=== PATIENT | female | born 1945 | race Caucasian/White ===

== ENCOUNTER 2016-12-08 00:57 | Inpatient (IN) | payer OTHER, MEDICARE ==
[2016-12-05 04:00] VITALS: BP 127/79; PULSE 84; RESP 18; TEMP 95.7; O2SAT 96
[~2016-12-08] VITALS: Ht 170.2 cm; Wt 76.5 kg
[~2016-12-08 00:57] MED LIST: ACYC200C66 PO; ATOR20TA15 PO; METO25TA3 PO; NALOXONE HCL 0.4 MG/ML AMP IV PRN; OMEP20TA PO; SODIUM CHLORIDE 0.9% FLUSH 10 ML FLUSH IV FLUSH PRN; VORI200 PO
[2016-12-08 01:10] VITALS: BP 160/101; PULSE 104; RESP 16; TEMP 96.5; O2SAT 96
[2016-12-08 08:00] VITALS: BP 145/84; PULSE 110; PULSE 98; RESP 20; TEMP 97; O2SAT 98
--- NOTE | 2016-12-08 09:46 | HHI.HP ---
[facility] Service [facility] Primary Care Physician Non-Staff Admission Diagnosis Dyspnea; lung mass Diagnoses: (1) Lung mass (2) Elevated troponin (3) Dyspnea on exertion Chief Complaint: Dyspnea Travel History International Travel<30 Days: No Contact w/Intl Traveler <30 Da: No History of Present Illness The patient is a 70-year-old female who presented to the emergency department with complaint of worsening shortness of breath over the past 2 days. She denies chest pain. States that the shortness of breath is significantly worse with any exertion. She was not able to walk around her van without getting short of breath yesterday. She states that she was at work and decided to drive herself to the ER because she was so short of breath. 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 She denies cardiac history, although does have family history of heart disease. Her mother had myocardial infarction at age 64. She states that she is feeling a little better this morning, but has not really been up ambulating much. Review of Systems Constitutional: DENIES: Fever, Chills, Night Sweats Eyes: DENIES: Blurred vision, Vision loss Ears, nose, mouth, throat: DENIES: Hearing loss Respiratory: COMPLAINS OF: Shortness of breath, DENIES: Cough, Wheezing, Sputum production Cardiovascular: COMPLAINS OF: Dyspnea on Exertion, DENIES: Chest pain, Palpitations, Lower Extremity Edema Gastrointestinal: DENIES: Abdominal pain, Constipation, Diarrhea, Nausea, Vomiting Genitourinary: DENIES: Urinary frequency, Urinary incontinence, Urgency, Hematuria, Dysuria, Nocturia Musculoskeletal: DENIES: Joint pain, Muscle aches Integumentary: DENIES: Pruritus, Rash Hematologic/lymphatic: DENIES: Bruising Neurologic: DENIES: Headache Past Family Social History Past Medical History History of T-cell lymphoma History of fungal pneumonia Diabetes mellitus, diet controlled GERD Past Surgical History Labs, cholecystectomy Appendectomy Hysterectomy Reported Medications Acyclovir 200 Mg Cap 200 Mg PO 5 TIMES A DAY Vfend (Voriconazole) 200 Mg Tab 200 Mg PO Q12H Metoprolol Tartrate 25 Mg Tab 25 Mg PO BID Atorvastatin (Atorvastatin Calcium) 20 Mg Tab 20 Mg PO HS Omeprazole 20 Mg Tab 20 Mg PO DAILY Allergies: Coded Allergies: Sulfa (Verified Allergy, Unknown, itching, 04/24/15) Family History Mother at age 64 of myocardial infarction. Social History Quit smoking 24 years ago. Denies alcohol or illicit drug use. Physical Exam Vital Signs Vital Signs Date Time Temp Pulse Resp B/P Pulse Ox O2 Delivery O2 Flow Rate FiO2 12/08/16 08:00 97.0 98 20 145/84 98 12/08/16 01:10 96.5 104 16 160/101 96 Physical Exam GENERAL: Elderly female in no acute distress. HEENT: Normocephalic, atraumatic. Pupils equal, round and reactive. Extraocular movements intact. No scleral icterus. No injection or drainage. Oropharynx is clear. Mucous membranes are moist. CARDIOVASCULAR: Irregular rhythm. RESPIRATORY: Clear to auscultation. No wheezes, rales, or rhonchi. Decreased breath sounds in both bases. Breathing is non-labored. GASTROINTESTINAL: Abdomen soft, non-tender, nondistended. EXTREMITIES: No lower extremity edema. No calf tenderness. PSYCH: Alert and oriented x 3. Assessment and Plan Assessment and Plan 1. Dyspnea: Possibly multifactorial. Patient does have pleural effusions. She denies personal history of cardiac disease, but does have elevated troponin. No current chest pain. Continue supplemental oxygen as needed. Add bronchodilators. 2. Hyperlipidemia: Continue statin. 3. Lung mass: Concerning for malignancy. Patient has history of T-cell lymphoma. Pulmonology consultation has been requested. 4. Elevated troponin: Continue serial cardiac enzymes. Consult cardiology. Monitor on telemetry. 5. DVT prophylaxis: LONA Shrestha. Bola Harry MD Dec 08, 2016 09:46
[2016-12-08] MEDS: ACETAMINOPHEN 325 MG TAB PO PRN ×2 (11:00→21:03)
[2016-12-08] MEDS: SODIUM CHLORIDE 0.9% FLUSH 10 ML FLUSH IV FLUSH SCH ×2 (11:00→21:01)
[2016-12-08] MEDS: METOPROLOL TARTRATE 25 MG TAB PO SCH ×2 (11:00→21:00)
[2016-12-08] MEDS: ACYCLOVIR 200 MG CAP PO SCH ×2 (11:05→21:00)
[2016-12-08] MEDS: PANTOPRAZOLE SOD 20 MG DELAYED RELEASE TAB PO SCH ×2 (11:05→21:00)
[2016-12-08 12:00] VITALS: BP 144/76; PULSE 51; RESP 20; TEMP 97.2; O2SAT 96
--- NOTE | 2016-12-08 12:32 | EKG ---
Date Performed: 12/08/2016 Time Performed: 09:10:33 PTAGE: 71 years EKG: SINUS TACHYCARDIA WITH FREQUENT ECTOPIC PREMATURE COMPLEXES NONSPECIFIC T-WAVE ABNORMALITY ABNORMAL RHYTHM ECG NO SIGNIFICANT CHANGE FROM PRIOR ELECTROCARDIOGRAM. PREVIOUS TRACING : 04/22/2015 15.18 DOCTOR: Santiago Hyman Interpretating Date/Time 12/08/2016 12:30:27
[2016-12-08] MEDS: VORICONAZOLE 200 MG TAB PO SCH (13:26)
[2016-12-08 15:58] VITALS: BP 121/81; PULSE 95; RESP 20; TEMP 97.4; O2SAT 97
--- NOTE | 2016-12-08 18:34 | PD.CONS ---
HPI Consult Requested By Primary Care Physician Non-Staff History of Present Illness 70-year-old female with pmhx of T-cell lymphoma s/p chemo and transplant at [facility], fungal lung infection, HTN, HLD, DM and family hx of CAD who presented to the emergency department with complaint of worsening shortness of breath over the past 2 days. States that the shortness of breath is significantly worse with minimal exertion. She denies cardiac history, chest pains, palpitations or syncope. She has been found to have bilateral extremity edema, pleural effusions and a upper lung mass concerning for malignancy. Troponin trended up, EKG sinus tachycardia with nonspecific ST changes. Cardiology has been consulted for further management and evaluation. Review of Systems Consitutional: COMPLAINS OF: Fatigue Eyes: DENIES: Amaurosis Fugax, Change in vision HEENT: DENIES: Lightheadedness, Change in hearing Respiratory: COMPLAINS OF: Shortness of breath, DENIES: See HPI, Cough, Snoring, Wheezing, Sputum production Cardiovascular: DENIES: See HPI, Chest pain, Palpitations, Syncope, Tachycardia Gastrointestinal: DENIES: Nausea, Vomiting, Change in bowel habits, Reflux, Bloody stools, Melena Genitourinary: DENIES: Urinary incontinence, Difficulty voiding Integumentary: DENIES: Rash Neurologic: DENIES: Tingling or numbness, Memory problems, Poor Balance, Stroke symptoms Musculoskeletal: DENIES: Joint pain, Muscle pain, Limited range of motion, Back pain Psychiatric: DENIES: Anxiety, Depression, Sleep disturbances Hematologic: DENIES: Bruising tendencies, Bleeding tendencies Endocrine: COMPLAINS OF: Weight gain Past Family Social History Allergies: Coded Allergies: Sulfa (Verified Allergy, Unknown, itching, 04/24/15) Past Medical History T-cell lymphoma Fungal pneumonia Diabetes mellitus, diet controlled GERD Past Surgical History Cholecystectomy Appendectomy Hysterectomy Reported Medications Reported Meds & Active Scripts Active Reported Acyclovir 200 Mg Cap 200 Mg PO BID Vfend (Voriconazole) 200 Mg Tab 200 Mg PO Q12H Metoprolol Tartrate 25 Mg Tab 25 Mg PO BID Atorvastatin (Atorvastatin Calcium) 20 Mg Tab 40 Mg PO HS Omeprazole 20 Mg Tab 20 Mg PO BID Active Ordered Medications Current Medications Medications (Trade) Dose Ordered Sig/Gregorio Route Start Time Stop Time Status Last Admin (NS Flush) 2 ml UNSCH PRN IV FLUSH 12/08/16 00:45 (NS Flush) 2 ml BID IV FLUSH 12/08/16 09:00 12/08/16 11:00 (Narcan Inj) 0.4 mg UNSCH PRN IV 12/08/16 00:45 (Zovirax) 200 mg BID PO 12/08/16 11:00 12/08/16 11:05 (Lipitor) 40 mg HS PO 12/08/16 21:00 (Lopressor) 25 mg BID PO 12/08/16 11:00 12/08/16 11:00 (Vfend) 200 mg Q12H PO 12/08/16 13:00 12/08/16 13:26 (Protonix) 20 mg BID PO 12/08/16 11:00 12/08/16 11:05 (Tylenol) 650 mg Q6H PRN PO 12/08/16 10:00 12/08/16 11:00 Family History Mother myocardial infarction 64 Social History Quit smoking 24 years ago. Denies alcohol or illicit drug use. Physical Exam Vital Signs Vital Signs Date Time Temp Pulse Resp B/P Pulse Ox O2 Delivery O2 Flow Rate FiO2 12/08/16 15:58 97.4 95 20 121/81 97 12/08/16 12:00 97.2 51 20 144/76 96 12/08/16 08:00 110 12/08/16 08:00 97.0 98 20 145/84 98 12/08/16 01:10 96.5 104 16 160/101 96 Physical Exam GENERAL: Well-nourished, well-developed patient. SKIN: Warm and dry. HEAD: Normocephalic. EYES: No scleral icterus. No injection or drainage. NECK: Supple, trachea midline. + JVD or lymphadenopathy. CARDIOVASCULAR: Regular rate and rhythm, tachycardic, without murmurs, gallops, or rubs. RESPIRATORY: Breath sounds equal bilaterally. No accessory muscle use. Bilateral rales GASTROINTESTINAL: Abdomen soft, non-tender, nondistended. EXTREMITIES: No cyanosis, or edema. NEUROLOGICAL: Awake, alert, and oriented x 3. Non-focal. Laboratory Laboratory Tests Test 12/08/16 09:00 Total Creatine Kinase 46 Troponin I 0.17 Assessment and Plan Problem List: (1) Elevated troponin Assessment and Plan: 71 y/o F admitted with SOB, pleural effusion and edema concerning for new onset heart failure. She remains afebrile and hemodynamically stable. Troponin minimally elevated. No BNP or TSH ordered. DDx new onset HF ischemic vs nonischemic (?chemo related) vs mets and worsening or recurrence of malignancy. She seems more compensated from SOB now. She was seem by pulmonology who recommends therapeutic and diagnostic thoracentesis in AM. Regarding elevated troponin I would start with a 2DEcho to assess LV systolic function. If EF depressed we can assess the need for LHC however if PCI is needed the Lung Mass needs to be work up first. Recommendations: 1. Aspirin 81mg PO daily 2. BNP 3. TSH, Free T3 and T4 4. Gentle IV diuresis 5. Daily weight 6. Low salt diet 7. 2Decho 8. Cont home cardiac medications (Lopressor and Lipitor) (2) Dyspnea on exertion (3) Lung mass (4) Lymphoma Sergio Herbert MD Dec 08, 2016 18:34
[2016-12-08 20:00] VITALS: BP 141/88; PULSE 88; PULSE 95; RESP 16; TEMP 97; O2SAT 95
[2016-12-08] MEDS: ATORVASTATIN 40 MG TAB PO SCH (21:00)
[2016-12-09] VITALS (11 sets, daily range): BP systolic 119–145; BP diastolic 72–87; PULSE 51–112; RESP 16–19; TEMP 96.1–98.1; O2SAT 95–98
[2016-12-09] MEDS: VORICONAZOLE 200 MG TAB PO SCH ×2 (01:00→12:45)
[2016-12-09 06:30] LABS: AUTOMATED NEUTROPHIL # 4.1 TH/MM3 (1.8-7.7); BASOPHIL % 0.6 % (0.0-2.0); EOSINOPHIL # 0.2 TH/MM3 (0-0.4); EOSINOPHIL % 2.9 % (0.0-4.0); HEMATOCRIT 32.7 % (35.0-46.0); HEMO FLAGS DIFF FINAL; LYMPH % 15.5 % (9.0-44.0); LYMPHOCYTE # 0.9 TH/MM3 (1.0-4.8); MEAN CELL VOLUME 92.6 FL (80.0-100.0); MEAN CORPUSCULAR HEMOGLOBIN 30.5 PG (27.0-34.0); MEAN CORPUSCULAR HGB CONC 32.9 % (32.0-36.0); MONO % 6.7 % (0.0-8.0); NEUT % 74.3 % (16.0-70.0); PLATELET COUNT 149 TH/MM3 (150-450); RED BLOOD COUNT 3.53 MIL/MM3 (4.00-5.30); RED CELL DISTRIBUTION WIDTH 16.1 % (11.6-17.2); WHITE BLOOD COUNT 5.6 TH/MM3 (4.0-11.0)
[2016-12-09 06:36] LABS: BICARBONATE 27.3 MEQ/L (21.0-32.0)
--- NOTE | 2016-12-09 07:06 | MB ---
cc: YOEL DIALLO M.D. DATE OF CONSULTATION 12/08/2016 REASON FOR CONSULTATION Shortness of breath, pleural effusion. HISTORY OF PRESENT ILLNESS Mrs. Vyas is a 71-year-old female who presents to the emergency room with increasing shortness of breath progressively worse for several days prior to her presentation. The patient does have significant previous history. She has history of T-cell lymphoma for which she had had a bone marrow transplant and told she was in remission at this point. She does have a recent history of fungal pneumonia for which she had been evaluated and treated at the [facility]. The patient denies a history of fever, chills, cough, expectoration, or hemoptysis. No TB or industrial exposure. FAMILY HISTORY Positive for heart disease, otherwise unremarkable. ALLERGIES Sulfa drugs. MEDICATIONS Include: 1. Acyclovir 2. Voriconazole 3. Metoprolol 4. Atorvastatin 5. Omeprazole SOCIAL HISTORY She did smoke for over 30 years, however has not smoked for the last 24. Does not really drink any alcohol. Does not use drugs. REVIEW OF SYSTEMS A 12-point review of systems as per HPI and past history is otherwise negative. PHYSICAL EXAM On exam, temperature 97, pulse 90, respirations 20, blood pressure 140/80. HEENT: Exam unremarkable. Eyes without icterus. NECK: Without adenopathy, thyroid enlargement, central trachea. CHEST: Decreased breath sounds at both lung bases, more so on the right. CARDIAC: PMI distant. S1-S2 audible. 1/6 ejection systolic murmur left sternal border. ABDOMEN: Lax, bowel sounds audible. EXTREMITIES: No clubbing, cyanosis, 1+ edema. LABORATORY DATA White count 6.4, hemoglobin 11, hematocrit 34, platelets at 158,000, INR 1.00. Sodium 142, potassium 3.7, BUN 15, creatinine 0.8, serum albumin at 3.3. CT angiogram done on 12/07/1969 without evidence of pulmonary embolization. A 22 mm mass is noted in the right middle lobe, malignancy is suspect. Large right smaller left pleural effusions, mild to mediastinal lymph node enlargement, coronary artery calcification. IMPRESSION 1. Bilateral pleural effusion etiology unclear. 2. History of lymphoma. 3. Fungal pneumonia by history on therapy. 4. Right middle lobe lung mass needs further workup. PLAN At this point, the main concern is the patient's shortness of breath. She would require a thoracentesis to improve her breathing. Meanwhile, the fluid will be obtained for both diagnostic and therapeutic objective and this may shed some light as to the etiology of the effusion. The patient does not seem to be having an acute infection at this point. Underlying malignancy is obviously a possibility. A cardiac evaluation is pending at this time as well for possible congestive heart failure. We will check the pleural fluid study results and depending on findings proceed further. I do thank you for asking me to partake in Mrs. Vyas' care. Sincerely. Yoel Diallo MD WWW/MAXIMILIANO /6:41 PM /6:57 AM
--- NOTE | 2016-12-09 09:05 | RADHPO ---
EXAM DATE/TIME: 12/09/2016 08:47 [place] COMPARISON: CT PULMONARY ANGIOGRAM, December 07, 2016, 21:40. INDICATIONS : Right pleural effusion. MEDICAL HISTORY : Hypercholesterolemia. Hernia, hiatal. Arthritis. Cervical cancer. Spinal cancer. Chemotherapy. Blood transfusion. SURGICAL HISTORY : Cholecystectomy. Appendectomy. Hysterectomy. Bone marrow transplant. ENCOUNTER: Initial ACUITY: 3 days PAIN SCORE: 2/10 LOCATION: Right chest MEASUREMENTS: SKIN TO PARIETAL PLEURA: Inadequate fluid SKIN TO MAX SAFE DEPTH: Inadequate fluid ESTIMATED FLUID VOLUME: 176 cc FLUID COMPOSITION: simple FINDINGS: No marking was performed. <Evaluation of both hemithoraces was performed and correlated to the CTA. The effusions have decreased considerably from that prior study.> CONCLUSION: The effusions have decreased considerably from the prior CTA. There is insufficient volume for safe t horacentesis. Paco Vyas Jr., MD on December 09, 2016 at 9:01 Board Certified Radiologist. This report was verified electronically.
[2016-12-09 09:10] LABS: PROTHROMBIN TIME - PATIENT 10.8 SEC (9.8-11.6)
[2016-12-09] MEDS: ACYCLOVIR 200 MG CAP PO SCH ×2 (09:38→21:46)
[2016-12-09] MEDS: PANTOPRAZOLE SOD 20 MG DELAYED RELEASE TAB PO SCH ×2 (09:38→21:00)
[2016-12-09] MEDS: METOPROLOL TARTRATE 25 MG TAB PO SCH (09:38)
[2016-12-09] MEDS: SODIUM CHLORIDE 0.9% FLUSH 10 ML FLUSH IV FLUSH SCH ×2 (09:40→21:46)
--- NOTE | 2016-12-09 11:20 | HHI.PR ---
Subjective Remarks Follow-up dyspnea, pleural effusion, elevated troponin. Patient states that her breathing is better today. She still gets short of breath with ambulation. No chest pain. Objective Vitals Vital Signs Date Time Temp Pulse Resp B/P Pulse Ox O2 Delivery O2 Flow Rate FiO2 12/09/16 08:00 96.2 97 17 132/82 95 12/09/16 04:00 97.2 87 16 144/87 96 12/09/16 00:00 96.4 51 16 136/83 96 12/08/16 20:00 95 12/08/16 20:00 97.0 88 16 141/88 95 12/08/16 15:58 97.4 95 20 121/81 97 12/08/16 12:00 97.2 51 20 144/76 96 I/O 12/08/16 12/08/16 12/08/16 12/09/16 12/09/16 12/09/16 07:00 15:00 23:00 07:00 15:00 23:00 Intake Total 240 ml 840 ml 640 ml 480 ml Balance 240 ml 840 ml 640 ml 480 ml Intake Oral 240 ml 840 ml 640 ml 480 ml # Voids 2 2 3 1 # Bowel Movements 0 0 0 0 Result Diagram: 12/09/16 0505 12/09/16 0505 Imaging Last Impressions Chest Ultrasound 12/09/16 0000 Signed Impressions: Service Date/Time: November 08:47 - CONCLUSION: The effusions have decreased considerably from the prior CTA. There is insufficient volume for safe thoracentesis. Paco Vyas Jr., MD Objective Remarks General: Elderly female in no acute distress. Heart: Regular rate and rhythm. No murmur. Lungs: Decreased breath sounds in both bases. Breathing is nonlabored. Abdomen: Soft, nontender, nondistended. Extremities: No lower extremity edema. Psych: Alert and oriented. Procedures None Urinary Catheter: No Vascular Central Line Catheter: No A/P Problem List: (1) Lung mass ICD Code: R91.8 Status: Acute (2) Elevated troponin ICD Code: R74.8 Status: Acute (3) Dyspnea on exertion ICD Code: R06.09 Status: Acute Assessment and Plan 1. Dyspnea: Multifactorial. Improving. She denies personal history of cardiac disease, but does have elevated troponin. No current chest pain. Continue supplemental oxygen as needed. Continue bronchodilators. Appreciate pulmonology and cardiology recommendations. Pleural effusion improved and there is not enough fluid present for thoracentesis. 2. Hyperlipidemia: Continue statin. 3. Lung mass: Concerning for malignancy. Patient has history of T-cell lymphoma. Pulmonology consultation has been requested. 4. Elevated troponin: Trending down. Monitor on telemetry. Appreciate cardiology recommendations. Echocardiogram pending. 5. DVT prophylaxis: LONA Shrestha. Discharge Planning Possible discharge home tomorrow. Bola Harry MD Dec 09, 2016 11:20
--- NOTE | 2016-12-09 16:57 | ECHRPT ---
Indication: Cardiomyopathy, unspecified CONCLUSIONS Normal left ventricular size. Wall thickness is normal. The left ventricular systolic function is severely reduced with an estimated ejection fraction in th e range of 20-25%. Mild mitral valve regurgitation. There is mild tricuspid valve regurgitation. There is estimated cvzgmcvb-mi-bxywmn pulmonary hypertension present (range 60-70 mmHg). IVC 2.8 BP: / HR: 93 Rhythm: MEASUREMENTS (Male / Female) Normal Values Technical Quality:Good 2D ECHO LV Diastolic Diameter PLAX 4.4 cm 4.2 - 5.9 / 3.9 - 5.3 cm LV Systolic Diameter PLAX 4.0 cm IVS Diastolic Thickness 1.2 cm 0.6 - 1.0 / 0.6 - 0.9 cm LVPW Diastolic Thickness 0.9 cm 0.6 - 1.0 / 0.6 - 0.9 cm LV Relative Wall Thickness 0.5 RV Internal Dim ED PLAX 1.6 cm M-MODE Aortic Root Diameter MM 3.5 cm LA Systolic Diameter MM 4.0 cm LA Ao Ratio MM 1.1 AV Cusp Separation MM 2.2 cm DOPPLER Mitral E Point Velocity 95.8 cm/s Mitral A Point Velocity 62.2 cm/s Mitral E to A Ratio 1.5 LV E' Lateral Velocity 8.3 cm/s Mitral E to LV E' Lateral Ratio 11.6 LV E' Septal Velocity 6.6 cm/s Mitral E to LV E' Septal Ratio 14.4 TR Peak Velocity 378.0 cm/s TR Peak Gradient 57.2 mmHg FINDINGS LEFT VENTRICLE There is global left ventricular dysfunction. Normal left ventricular size. Wall thickness is normal. The left ventricular systolic function is severely reduced with an estimated ejection fraction in th e range of 20-25%. MITRAL VALVE Structurally normal mitral valve. [id number] mitral valve regurgitation. AORTIC VALVE Trileaflet aortic valve. TRICUSPID VALVE Structurally normal tricuspid valve. There is mild tricuspid valve regurgitation. There is estimated maedxsrm-ez-aqdjls pulmonary hypertension present (range 60-70 mmHg). PULMONARY VALVE No pulmonary valve regurgitation or stenosis. VESSELS IVC 2.8 Jony Simmons MD (Electronically Signed) Final Date:09 December 2016 16:56
[2016-12-09] MEDS ORDERED: IOHEXOL 350 MG/ML 50 ML BTL (for Cath Lab) OTHER ONE (17:13)
[2016-12-09] MEDS ORDERED: MIDAZOLAM HCL 2 MG/2 ML VIAL ONE (17:22)
[2016-12-09] MEDS ORDERED: HEPARIN-NS/PF INJ 500 ML ONE (17:22)
[2016-12-09] MEDS ORDERED: VERAPAMIL HCL 5 MG/2 ML VIAL ONE (17:23)
[2016-12-09] MEDS ORDERED: HEPARIN SODIUM - IV 10,000 UNITS/10 ML VIAL ONE (17:23)
--- NOTE | 2016-12-09 17:31 | PD.CARD.PN ---
Subjective Subjective Remarks Doing better from SOB S/P thoracentesis EF 20% on Echo Objective Medications Current Medications Medications (Trade) Dose Ordered Sig/Gregorio Route Start Time Stop Time Status Last Admin (NS Flush) 2 ml UNSCH PRN IV FLUSH 12/08/16 00:45 (NS Flush) 2 ml BID IV FLUSH 12/08/16 09:00 12/09/16 09:40 (Narcan Inj) 0.4 mg UNSCH PRN IV 12/08/16 00:45 (Zovirax) 200 mg BID PO 12/08/16 11:00 12/09/16 09:38 (Lipitor) 40 mg HS PO 12/08/16 21:00 12/08/16 21:00 (Lopressor) 25 mg BID PO 12/08/16 11:00 12/09/16 09:38 (Vfend) 200 mg Q12H PO 12/08/16 13:00 12/09/16 12:45 (Protonix) 20 mg BID PO 12/08/16 11:00 12/09/16 09:38 (Tylenol) 650 mg Q6H PRN PO 12/08/16 10:00 12/08/16 21:03 Vital Signs / I&O Vital Signs Date Time Temp Pulse Resp B/P Pulse Ox O2 Delivery O2 Flow Rate FiO2 12/09/16 16:00 96.5 84 18 130/86 96 12/09/16 12:00 96.1 97 19 119/80 95 12/09/16 08:00 112 12/09/16 08:00 96.2 97 17 132/82 95 12/09/16 04:00 97.2 87 16 144/87 96 12/09/16 00:00 96.4 51 16 136/83 96 12/08/16 20:00 95 12/08/16 20:00 97.0 88 16 141/88 95 I/O 12/08/16 12/08/16 12/08/16 12/09/16 12/09/16 12/09/16 07:00 15:00 23:00 07:00 15:00 23:00 Intake Total 240 ml 840 ml 640 ml 480 ml 0 ml Balance 240 ml 840 ml 640 ml 480 ml 0 ml Intake Oral 240 ml 840 ml 640 ml 480 ml 0 ml # Voids 2 2 3 1 2 # Bowel Movements 0 0 0 0 Physical Exam GENERAL: Well-nourished, well-developed patient. SKIN: Warm and dry. HEAD: Normocephalic. EYES: No scleral icterus. No injection or drainage. NECK: Supple, trachea midline. No JVD or lymphadenopathy. CARDIOVASCULAR: Regular rate and rhythm without murmurs, gallops, or rubs. RESPIRATORY: Breath sounds equal bilaterally. No accessory muscle use. GASTROINTESTINAL: Abdomen soft, non-tender, nondistended. EXTREMITIES: No cyanosis, or edema. NEUROLOGICAL: Awake, alert, and oriented x 3. Non-focal. Laboratory Laboratory Tests Test 12/09/16 12/09/16 05:05 08:10 White Blood Count 5.6 TH/MM3 Red Blood Count 3.53 MIL/MM3 Hemoglobin 10.8 GM/DL Hematocrit 32.7 % Mean Corpuscular Volume 92.6 FL Mean Corpuscular Hemoglobin 30.5 PG Mean Corpuscular Hemoglobin 32.9 % Concent Red Cell Distribution Width 16.1 % Platelet Count 149 TH/MM3 Mean Platelet Volume 8.2 FL Neutrophils (%) (Auto) 74.3 % Lymphocytes (%) (Auto) 15.5 % Monocytes (%) (Auto) 6.7 % Eosinophils (%) (Auto) 2.9 % Basophils (%) (Auto) 0.6 % Neutrophils # (Auto) 4.1 TH/MM3 Lymphocytes # (Auto) 0.9 TH/MM3 Monocytes # (Auto) 0.4 TH/MM3 Eosinophils # (Auto) 0.2 TH/MM3 Basophils # (Auto) 0.0 TH/MM3 CBC Comment DIFF FINAL Differential Comment Sodium Level 145 MEQ/L Potassium Level 4.0 MEQ/L Chloride Level 110 MEQ/L Carbon Dioxide Level 27.3 MEQ/L Anion Gap 8 MEQ/L Blood Urea Nitrogen 15 MG/DL Creatinine 0.95 MG/DL Estimat Glomerular Filtration 58 ML/MIN Rate Random Glucose 130 MG/DL Calcium Level 8.4 MG/DL Prothrombin Time 10.8 SEC Prothromb Time International 1.0 RATIO Ratio Imaging Last Impressions Chest Ultrasound 12/09/16 0000 Signed Impressions: Service Date/Time: November 08:47 - CONCLUSION: The effusions have decreased considerably from the prior CTA. There is insufficient volume for safe thoracentesis. Paco Vyas Jr., MD Assessment and Plan Problem List: (1) Dyspnea on exertion Assessment and Plan: 71 y/o F admitted with new acute systolic heart failure. She remains afebrile and hemodynamically stable. Better from SOB standpoint today. ECHO shows severe LV systolic function with estimated ejection fraction of 20-25%. At this point I recommend LHC to differentiate between Ischemic and Non-Ischemic Cardiomyopathy. Unfortunately there is a Lung Mass that will need further work in case PCI is needed. Recommendations 1. Keep NPO for LHC today 2. Start Coreg 3.125mg PO BID d/c Lopressor 3. Start Entresto 4. Aspirin 81mg 5. Cont statin 6. Start Aldactone 7. Low salt diet 8. Daily weights 9. Encourage ambulation (2) Elevated troponin (3) Lung mass (4) Lymphoma Sergio Herbert MD Dec 09, 2016 17:31
--- NOTE | 2016-12-09 18:07 | CATHPROC ---
[employer] HIS Report Study Information Study Number Admission Scheduled Start Study Start [id number] Dec 08 2016 1:05AM 12/09/2016 Dec 09 2016 5:19PM [place] [facility] Cardiac Catheterization Admit Source Facility Department Transfer in from another acute care facility [facility] - Healthcare Science Specialist Physician and Clinical Staff Initial Sergio Lozoya Chief Engineering Divisionrober Torre RN, Chasity Dominguez RN Recorder Anahi Harley,RT(R) (BS) Scrub Katie Willoughby,NITRO WORKER TECH2 Procedures Performed Procedure Location (Site) Vessel Name Coronary Angiograms LCA Left Coronary Coronary Angiograms RCA Right Coronary L Heart Cath LV Gram-hand inj. LV LV Ventricle Equipment Time Hot Dog Vender Description Size Mfg Part Number Used/Scraped TRANSDUCER, TRUWAVE [id number] 17:21 PALMA CONCEPCION * Used W/STOCKCOCK *[id number] [id number] *[id number] *[id number] 17:21 [employer] PACK, CCL CUSTOM * Used *[id number] 17:21 [employer] SUPPORT, ARTERIAL ADULT [id number] Used BAND, RADIAL COMPRESSION TR [id number] 17:58 Outcome Referrals MEDICAL 24CM Used SHORT 24 *[id number] 17:21 [employer] WIRE, 3MMJ .035 180CM 180CM Used *[id number] 17:21 NAMIC MANIFOLD, 4 PORT * Used *[id number] 17:21 NYCOMED OMNIPAQUE, 350 MG, 150ML 150ML [id number] Used [id number] 17:21 [employer] BLANKET,WARM AIR CCL * Used *[id number] SHEATH, FR6 TRANSRADIAL 17:21 IndexTank FR 6 [id number] Used SLENDER 10CM History: Current Medications Medication Dosage/Unit Route Frequency Last Date/Time Taken Statins (any) Beta Umair History: Allergies Allergy Reaction Sulfa itching History: Risk Factors Family History of Hypertension Dyslipidemia Previous ID Previous Heart Failure Premature CAD Yes Yes Yes No No Prior Valve Prior PCI Prior CABG Surgery No No No Cerebrovascular Peripheral Artery Chronic Lung On Dialysis Diabetes Diabetes Therapy Disease Disease Disease No No No No Yes Diet History: Stress Tests Stress or Imaging Studies Performed No History: Other Disease Selection Items Cancer History: Other Current Smoker Method Quit Packs a Day Years Used Pack Years No Cigarettes 24 Years Ago 1 30 30 Labs Hgb (g/dl) Hct (%) WBC (l/cumm) Platelets (thousands) 12.00-18.00 37.00-55.00 4.80-10.80 140.00-450.00 10.8 32.7 5.6 149 Glucose (mg/dl) BUN (mg/dl) Creatinine (mg/dl) BUN:Creatinine (1:x) 60.00-110.00 8.00-20.00 0.10-9.00 10.00-20.00 130 15 0.9 16.7 Na (meq/l) K (meq/l) 138.00-146.00 3.80-5.10 145 4 INR (PTT:PT) 0.50-2.00 1 Troponin I (ng/ml) CPK-MB (ng/ML) 0.40-2.30 0.00-7.00 0.17 Not Drawn Medication Medication Total Dose (Bolus/Oral) Medication Total Dosage/Unit 1% XYLOCAINE 1 mL FENTANYL 50 mcg RADIAL COCKTAIL 1 units VERSED 2 mg Medications (Bolus/Oral) Medication Time Given Dosage/Unit Administered By Reason FENTANYL 12/09/2016 5:37:56 PM 50 mcg Chauncey Torre RN 50 mcg FENTANYL given in lab by Chauncey Torre RN in Left Antecubital via Peripheral IV. VERSED 12/09/2016 5:38:21 PM 2 mg Chauncey Torre RN 2 mg VERSED given in lab by Chauncey Torre RN in Left Antecubital via Peripheral IV. 1% XYLOCAINE 12/09/2016 5:38:46 PM 1 mL Farr-Alyssa Sergio 1 mL 1% XYLOCAINE given in lab by Sergio Herbert in Right Radial via Subcutaneous. Ntg 200mcg Verapamil 2.5mg Heparin RADIAL COCKTAIL 12/09/2016 5:40:37 PM 1 units Farr-Alyssa, Sergio 2500U 1 units RADIAL COCKTAIL given in lab by Ritu Herbertro in Right Radial via Radial. Reason: Ntg 200 mcg Verapamil 2.5mg Heparin 2500U. Medication (Drip) Medication Time Given Dosage/Unit Concentration/Unit Diluent (ml) Solution IV Solutions 12/09/2016 5:19:50 PM 0 mL (IV) 500 NaCl .9 Patient arrived on IV Solutions in Left Antecubital via Peripheral IV. Pump/Drip Flow = 20 ml/hr usin g NaCl .9. Initial Case Assessment Cardiovascular HR Rhythm NIBP Chest Pain 107 reg 164/105 0 Edema Present Skin color Skin None Normal Warm Dry Circulatory - Right Pulses Dorsalis Pedis Femoral 2 2 Scale (0,1,2,3,4,d) Circulatory - Left Pulses Dorsalis Pedis Femoral 2 Scale (0,1,2,3,4,d) Circulatory - Lower Extremities Color Lower Right Color Lower Left Normal Normal Neurological State Oriented to time-place- Alert Moves all extremities person Respiration - General Respiration Rate SpO2 (%) (B/min) 13 100 Chronological Log Time Study Chronological Log 17:13:51 Patient arrived via Bed. 17:13:59 Patient Name, D.O.B, / Armband Verified By R.N. 17:14:02 Consent signed by the physician and the patient and verified by the Healthcare Science Specialist staff. 17:14:07 Pre-op and post- op instructions given; patient acknowledges understanding of instructions. Vitals capture started with the following parameters, Patient=Adult, Interval=5 min, Initial Pr nloegg=785 mmHg, 17:19:12 Deflation Rate=5 mmHg 17:19:15 Verbal Stimulation=2 Physical Stimulation=2 Airway=2 Respiration=2 TOTAL=8. (0=absent, 1=li mited, 2=present) 17:19:21 Presedation assessment performed by Healthcare Science Specialist RN. 17:19:34 Allens test performed on the right radial and ulnar artery. 17:19:41 Patient has been NPO for More than 6Hrs. 17:19:42 Skin Breakdown none per pt 17:19:43 Patient Warmer Placed on the Table. 17:19:46 XXNW=274/105 mmhg, SpO2=99.0 %, Pain=0, Ross=10, Rankin=2 17:19:48 Annie Prominences Protected 17:19:50 A # 20 IV was noted in the Antecubital (left). Grade = 0 17:19:50 Patient arrived on IV Solutions in Left Antecubital via Peripheral IV. Pump/Drip Flow = 20 ml/hr using NaCl .9. 17:19:51 History and physical on the chart or being dictated. Assessment: Initial Case, XY=985 BPM, Rhythm=reg, RLMQ=732/105 mmhg, Chest Pain=0, Edema=None, Color=Normal, Skin = Warm, Dry Right Pulses: Parker Ped=2, Femoral=2 Left Pulses: Parker Ped=2, Radial=2 17:19:53 Lower Right Extremities: Color=Normal Lower Left Extremities: Color=Normal Neurological: State=Alert, Ox3, GARNER Respiration: Resp=13 B/min, FvL2=249 % 17:23:23 Reference ECG taken 17:24:51 NI=002 bpm, KHGA=302/94 mmhg, SpO2=99.0 %, Resp=12 B/min, Pain=0, Ross=10, Rankin=2 17:25:57 Bilateral groins prepped with 2% chlorhexidine, and with a 3 min. waiting time. 17:29:36 Pressure channel 1 zeroed. 17:29:50 AU=862 bpm, SZXP=132/97 mmhg, RtP4=457.0 %, Resp=10 B/min, Pain=0, Ross=10, Rankin=2 17:31:22 MD arrived 17:34:49 XY=978 bpm, ZKKU=937/91 mmhg, SpO2=99.0 %, Resp=13 B/min, Pain=0, Ross=10, Rankin=2 Time Out. Correct patient, correct procedure,correct physician, power injector not loaded with contrast with surgical 17:37:53 team present. Time Out Concurred by , individual staff in procedure 17:37:56 50 mcg FENTANYL given in lab by Chauncey Torre RN in Left Antecubital via Peripheral IV. 17:38:21 2 mg VERSED given in lab by Chauncey Torre RN in Left Antecubital via Peripheral IV. 17:38:33 Case Start 17:38:46 1 mL 1% XYLOCAINE given in lab by Sergio Herbert in Right Radial via Subcutaneous. 17:39:18 Access site was radial Radial Artery. A SHEATH, FR6 TRANSRADIAL SLENDER 10CM FR 6 was advanced into the Radial (right) using the Perc utaneous 17:39:46 technique. 17:39:53 NQ=373 bpm, SDPG=491/89 mmhg, SpO2=96.0 %, Resp=14 B/min, Pain=0, Ross=10, Rankin=2 1 units RADIAL COCKTAIL given in lab by Sergio Herbert in Right Radial via Radial. Reason: N tg 200mcg Verapamil 17:40:37 2.5mg Heparin 2500U. A JR 4.0 INFINITI CATHETER FR 5 was advanced over a wire. OMNIPAQUE, 350 MG, 150ML 150ML was us ed for 17:41:02 injections. 17:43:13 Pressure channel 1 zeroed. Recorded Pressure: LV, YA=874, Condition=Condition 1 17:44:06 (Left Ventricle) LV 144/120/9* 17:44:25 The LV was manually injected with 8 cc's and visualized. OMNIPAQUE, 350 MG, 150ML 150ML use d. Recorded Pressure: LV, Ao, OK=825, Condition=Condition 1 17:44:35 (Left Ventricle) LV 125/62/86, (Aorta) Ao 122/73/90 17:44:54 DJ=046 bpm, WCIO=742/76 mmhg, SpO2=97.0 %, Resp=7 B/min, Pain=0, Ross=10, Rankin=2 17:44:55 The RCA was injected and visualized at various angles. OMNIPAQUE, 350 MG, 150ML 150ML used . 17:45:45 Catheter was removed A JL 4.0 INFINITI CATHETER FR 5 was advanced over a wire. OMNIPAQUE, 350 MG, 150ML 150ML was us ed for 17:46:14 injections. 17:47:04 The LCA was injected and visualized at various angles. OMNIPAQUE, 350 MG, 150ML 150ML used . Recorded Pressure: Ao, KL=609, Condition=Condition 1 17:48:44 (Aorta) Ao 137/83/103 17:49:05 Catheter was removed 17:49:18 Case End 17:49:26 Catheter(s) removed without difficulty 17:49:34 No case complications noted. 17:49:35 Cine recording checked. 17:49:38 Bedside Report will be given. 17:49:45 Contrast Scanned 17:49:47 A Left Heart Cath was performed. 17:50:17 CE=792 bpm, PWBA=978/82 mmhg, SpO2=98.0 %, Resp=14 B/min, Pain=0, Ross=10, Rankin=2 17:54:12 CIC called. 17:54:50 KV=252 bpm, CNWK=393/87 mmhg, Resp=11 B/min, Pain=0, Ross=10, Rankin=2 Radial Compression Device Used. 15 mLs of air placed in BAND, RADIAL COMPRESSION TR SHORT 24 2 4CM. Affected 17:57:49 hand 96 % O2 saturation. 17:59:51 UKYH=637/84 mmhg, Pain=0, Ross=10, Rankin=2 18:00:51 Vitals capture stopped. 18:03:42 Patient moved to stretcher End Study - Contrast Media Used In Study Contrast Total Opened (mL) Total Used (mL) Total Wasted (mL) Omnipaque 40 40 0 End Study - Maximum Contrast Load Max Contrast Load (mL) 416.2 End Study - Radiation Exposure Fluoro Time (minutes) 2.9 End Study - Sheaths Sheaths Pulled By Sheath Hold Time (min) Katie Willoughby End Study - Patient Disposition Complications Transferred To Interventional Outcome No Telemetry Bed No attempt made
--- NOTE | 2016-12-09 18:12 | HHI.PR ---
Subjective Remarks ASS ALERT NO SOB at rest echo EF 25% Objective Vital Signs Date Time Temp Pulse Resp B/P Pulse Ox O2 Delivery O2 Flow Rate FiO2 12/09/16 16:00 96.5 84 18 130/86 96 12/09/16 12:00 96.1 97 19 119/80 95 12/09/16 08:00 112 12/09/16 08:00 96.2 97 17 132/82 95 12/09/16 04:00 97.2 87 16 144/87 96 12/09/16 00:00 96.4 51 16 136/83 96 12/08/16 20:00 95 12/08/16 20:00 97.0 88 16 141/88 95 I/O 12/08/16 12/08/16 12/08/16 12/09/16 12/09/16 12/09/16 07:00 15:00 23:00 07:00 15:00 23:00 Intake Total 240 ml 840 ml 640 ml 480 ml 0 ml Balance 240 ml 840 ml 640 ml 480 ml 0 ml Intake Oral 240 ml 840 ml 640 ml 480 ml 0 ml # Voids 2 2 3 1 2 # Bowel Movements 0 0 0 0 Result Diagram: 12/09/16 0505 12/09/16 0505 Objective Remarks GENERAL: SKIN: Warm and dry. HEAD: Atraumatic. Normocephalic. EYES: Pupils equal and round. No scleral icterus. No injection or drainage. ENT: No nasal bleeding or discharge. Mucous membranes pink and moist. NECK: Trachea midline. No JVD. CARDIOVASCULAR: Regular rate and rhythm. RESPIRATORY: No accessory muscle use. DECREASE BREATH SOUNDS AT BASIS GASTROINTESTINAL: Abdomen soft, non-tender, nondistended. Hepatic and splenic margins not palpable. MUSCULOSKELETAL: Extremities without clubbing, cyanosis, or edema. No obvious deformities. NEUROLOGICAL: Awake and alert. No obvious cranial nerve deficits. Motor grossly within normal limits. Five out of 5 muscle strength in the arms and legs. Normal speech. PSYCHIATRIC: Appropriate mood and affect; insight and judgment normal. Assessment and Plan Assessment and Plan ASS PLEURAL EFFUSIONS DUE TO CHF PLAN FOR CARDIAC CATH Yoel Diallo MD Dec 09, 2016 18:12
[2016-12-09] MEDS: ASPIRIN EC 81 MG TABEC PO SCH (18:27)
[2016-12-09] MEDS: SPIRONOLACTONE 25 MG TAB PO SCH (18:27)
[2016-12-09] MEDS: ATORVASTATIN 40 MG TAB PO SCH (21:46)
[2016-12-09] MEDS: SACUBITRIL/VALSARTAN 24 MG-26 MG TAB PO SCH (21:46)
[2016-12-09] MEDS: CARVEDILOL 3.125 MG TAB PO SCH (21:46)
[2016-12-10] VITALS (25 sets, daily range): BP systolic 105–125; BP diastolic 45–74; PULSE 78–102; RESP 18; TEMP 97.8–98.7; O2SAT 96–99
[2016-12-10] MEDS: VORICONAZOLE 200 MG TAB PO SCH ×2 (01:24→13:52)
--- NOTE | 2016-12-10 05:19 | MA ---
cc: EDMAR EDMOND DATE OF 1945 DATE OF PROCEDURE December 09, 2016 PROCEDURE PERFORMED 1. Left heart catheterization. 1. Selective coronary angiography. 2. Left ventriculogram. INDICATION Acute systolic heart failure/newly diagnosed severe LV dysfunction. DESCRIPTION OF PROCEDURE Consent signed. The patient was brought into the cardiac recyclable products sorter in a fasting state. The right wrist and groin were prepped and draped in sterile fashion. Using 1% lidocaine for local anesthesia and a micropuncture kit, a standard 6- Lao sheath was inserted into the right radial artery. Antispasmodic cocktail given. Then selective left and right coronary left coronary angiogram was performed with JR-4 and a JL-3.5 diagnostic catheters. Angiography was taken in multiple views. Then the JR-4 catheter was introduced into the ventricle over a wire. This was followed by pressure recordings, left ventriculogram and pullback. The patient tolerated the procedure well without complications. ESTIMATED BLOOD LOSS Less than 20 cc. CONTRAST USED 40 cc. The radial access site was closed with a TR band. All catheters were exchanged over a wire. RESULTS LEFT VENTRICLE The left ventricular pressure was 124/62 with an LVEDP of 11. The aortic pressure was 137/83 with mean of 103. The left ventriculogram revealed global hypokinesia with an estimated ejection fraction of 20%. There was no gradient upon pullback from the left ventricle to the aorta. ANGIOGRAPHY 1. Left Main: Patent nonobstructive coronary artery disease. 2. The LAD is a transapical vessel. It is patent with MARGIE-3 flow and nonobstructive CAD. It is giving off two big diagonal branches which are also patent with MARGIE-3 flow and nonobstructive coronary artery disease. 3. The left circumflex artery is also patent with nonobstructive coronary artery disease. It is giving off several obtuse marginal branches which are small and patent. 4. The right coronary artery is a dominant vessel which is giving off the PDA. This vessel is patent with MARGIE-3 flow and nonobstructive CAD. It is giving off the PDA as well as posterolateral branches which are all patent with MARGIE-3 flow and nonobstructive coronary artery disease. CONCLUSION 1. Nonischemic cardiomyopathy. 2. Severe LV systolic dysfunction. 3. Nonobstructive coronary artery disease. RECOMMENDATIONS Aggressive medical management for heart failure. The patient should be on beta blockers, TY inhibitor, spironolactone and Lasix. She will go to the [facility] for postop care. The rest of the care per the primary team. MD BRIAN Urban/SSB /6:01 PM /5:09 AM BERE
--- NOTE | 2016-12-10 07:49 | HHI.PR ---
Subjective Remarks ASS ALERT NO SOB at rest echo EF 25% cardiac cath done Objective Vital Signs Date Time Temp Pulse Resp B/P Pulse Ox O2 Delivery O2 Flow Rate FiO2 12/10/16 06:06 89 12/10/16 05:00 90 12/10/16 04:00 93 12/10/16 03:00 99 12/10/16 03:00 97.8 100 18 113/74 96 12/10/16 02:11 100 12/10/16 01:00 96 12/10/16 00:00 98 12/09/16 23:00 97.9 99 16 121/73 98 12/09/16 23:00 98 12/09/16 22:00 96 12/09/16 21:00 94 12/09/16 20:00 96 12/09/16 19:00 94 12/09/16 19:00 97.6 100 18 124/72 96 12/09/16 18:34 98.1 99 18 145/86 97 12/09/16 16:00 96.5 84 18 130/86 96 12/09/16 12:00 96.1 97 19 119/80 95 12/09/16 08:00 112 12/09/16 08:00 96.2 97 17 132/82 95 I/O 12/09/16 12/09/16 12/09/16 12/10/16 12/10/16 12/10/16 07:00 15:00 23:00 07:00 15:00 23:00 Intake Total 480 ml 0 ml 480 ml Output Total 1200 ml Balance 480 ml 0 ml -720 ml Intake Oral 480 ml 0 ml 480 ml Output Urine Total 1200 ml # Voids 1 2 # Bowel Movements 0 Result Diagram: 12/09/16 0505 12/09/16 0505 Objective Remarks GENERAL: SKIN: Warm and dry. HEAD: Atraumatic. Normocephalic. EYES: Pupils equal and round. No scleral icterus. No injection or drainage. ENT: No nasal bleeding or discharge. Mucous membranes pink and moist. NECK: Trachea midline. No JVD. CARDIOVASCULAR: Regular rate and rhythm. RESPIRATORY: No accessory muscle use. DECREASE BREATH SOUNDS AT BASIS GASTROINTESTINAL: Abdomen soft, non-tender, nondistended. Hepatic and splenic margins not palpable. MUSCULOSKELETAL: Extremities without clubbing, cyanosis, or edema. No obvious deformities. NEUROLOGICAL: Awake and alert. No obvious cranial nerve deficits. Motor grossly within normal limits. Five out of 5 muscle strength in the arms and legs. Normal speech. PSYCHIATRIC: Appropriate mood and affect; insight and judgment normal. Assessment and Plan Assessment and Plan ASS PLEURAL EFFUSIONS DUE TO CHF RML MASS PLAN FOR CARDIAC CATH WHEN STABLE WILL PROCEED WITH FURTHER W/U OF LUNG MASS Yoel Diallo MD Dec 10, 2016 07:49
[2016-12-10] MEDS: SACUBITRIL/VALSARTAN 24 MG-26 MG TAB PO SCH ×2 (08:19→20:05)
[2016-12-10] MEDS: ACYCLOVIR 200 MG CAP PO SCH ×2 (08:19→20:05)
[2016-12-10] MEDS: SPIRONOLACTONE 25 MG TAB PO SCH (08:19)
[2016-12-10] MEDS: CARVEDILOL 3.125 MG TAB PO SCH ×2 (08:19→20:08)
[2016-12-10] MEDS: ASPIRIN EC 81 MG TABEC PO SCH (08:19)
[2016-12-10] MEDS: PANTOPRAZOLE SOD 20 MG DELAYED RELEASE TAB PO SCH ×2 (08:19→20:08)
[2016-12-10] MEDS: SODIUM CHLORIDE 0.9% FLUSH 10 ML FLUSH IV FLUSH SCH ×2 (08:20→20:08)
--- NOTE | 2016-12-10 10:30 | PD.CARD.PN ---
Subjective Subjective Remarks no overnight events no complaints Objective Medications Current Medications Medications (Trade) Dose Ordered Sig/Gregorio Route Start Time Stop Time Status Last Admin (NS Flush) 2 ml UNSCH PRN IV FLUSH 12/08/16 00:45 (NS Flush) 2 ml BID IV FLUSH 12/08/16 09:00 12/10/16 08:20 (Narcan Inj) 0.4 mg UNSCH PRN IV 12/08/16 00:45 (Zovirax) 200 mg BID PO 12/08/16 11:00 12/10/16 08:19 (Lipitor) 40 mg HS PO 12/08/16 21:00 12/09/16 21:46 (Vfend) 200 mg Q12H PO 12/08/16 13:00 12/10/16 01:24 (Protonix) 20 mg BID PO 12/08/16 11:00 12/10/16 08:19 (Tylenol) 650 mg Q6H PRN PO 12/08/16 10:00 12/08/16 21:03 (Coreg) 3.125 mg Q12HR PO 12/09/16 21:00 12/10/16 08:19 (Entresto 24-26 Mg) 1 tab BID PO 12/09/16 21:00 12/10/16 08:19 (Aldactone) 25 mg DAILY PO 12/09/16 18:00 12/10/16 08:19 (Ecotrin Ec) 81 mg DAILY PO 12/09/16 18:00 12/10/16 08:19 Vital Signs / I&O Vital Signs Date Time Temp Pulse Resp B/P Pulse Ox O2 Delivery O2 Flow Rate FiO2 12/10/16 08:15 97.9 90 18 112/70 97 12/10/16 06:06 89 12/10/16 05:00 90 12/10/16 04:00 93 12/10/16 03:00 99 12/10/16 03:00 97.8 100 18 113/74 96 12/10/16 02:11 100 12/10/16 01:00 96 12/10/16 00:00 98 12/09/16 23:00 97.9 99 16 121/73 98 12/09/16 23:00 98 12/09/16 22:00 96 12/09/16 21:00 94 12/09/16 20:00 96 12/09/16 19:00 94 12/09/16 19:00 97.6 100 18 124/72 96 12/09/16 18:34 98.1 99 18 145/86 97 12/09/16 16:00 96.5 84 18 130/86 96 12/09/16 12:00 96.1 97 19 119/80 95 I/O 12/09/16 12/09/16 12/09/16 12/10/16 12/10/16 12/10/16 06:59 14:59 22:59 06:59 14:59 22:59 Intake Total 480 ml 0 ml 480 ml Output Total 1200 ml Balance 480 ml 0 ml -720 ml Intake Oral 480 ml 0 ml 480 ml Output Urine Total 1200 ml # Voids 1 2 # Bowel Movements 0 Physical Exam GENERAL: Well-nourished, well-developed patient. SKIN: Warm and dry. HEAD: Normocephalic. EYES: No scleral icterus. No injection or drainage. NECK: Supple, trachea midline. No JVD or lymphadenopathy. CARDIOVASCULAR: Regular rate and rhythm without murmurs, gallops, or rubs. RESPIRATORY: Breath sounds equal bilaterally. No accessory muscle use. GASTROINTESTINAL: Abdomen soft, non-tender, nondistended. EXTREMITIES: No cyanosis, or edema. NEUROLOGICAL: Awake, alert, and oriented x 3. Non-focal. Imaging Last Impressions Chest Ultrasound 12/09/16 0000 Signed Impressions: Service Date/Time: November 08:47 - CONCLUSION: The effusions have decreased considerably from the prior CTA. There is insufficient volume for safe thoracentesis. Paco Vyas Jr., MD Assessment and Plan Problem List: (1) Nonischemic cardiomyopathy Assessment and Plan: Normal Coronaries on [facility]. Non-Ischemic Cardiomyopathy likely chemo induced vs. viral. She remains afebrile and hemodynamically stable. Recs: Cont Coreg, Entresto, Aldactone, ASA, Lasix Strict I&O Daily weight Encourage ambulation Repeat Echo in 3 months (2) Dyspnea on exertion (3) Elevated troponin (4) Lung mass (5) Lymphoma Sergio Herbert MD Dec 10, 2016 10:29
--- NOTE | 2016-12-10 13:38 | HHI.PR ---
Subjective Remarks Patient reports feeling better today. Shortness of breath significantly improved. No chest pain. Objective Vitals Vital Signs Date Time Temp Pulse Resp B/P Pulse Ox O2 Delivery O2 Flow Rate FiO2 12/10/16 10:01 98 12/10/16 09:00 94 12/10/16 08:15 97.9 90 18 112/70 97 12/10/16 08:00 86 12/10/16 07:00 90 12/10/16 06:06 89 12/10/16 05:00 90 12/10/16 04:00 93 12/10/16 03:00 99 12/10/16 03:00 97.8 100 18 113/74 96 12/10/16 02:11 100 12/10/16 01:00 96 12/10/16 00:00 98 12/09/16 23:00 97.9 99 16 121/73 98 12/09/16 23:00 98 12/09/16 22:00 96 12/09/16 21:00 94 12/09/16 20:00 96 12/09/16 19:00 94 12/09/16 19:00 97.6 100 18 124/72 96 12/09/16 18:34 98.1 99 18 145/86 97 12/09/16 16:00 96.5 84 18 130/86 96 I/O 12/09/16 12/09/16 12/09/16 12/10/16 12/10/16 12/10/16 07:00 15:00 23:00 07:00 15:00 23:00 Intake Total 480 ml 0 ml 480 ml Output Total 1200 ml Balance 480 ml 0 ml -720 ml Intake Oral 480 ml 0 ml 480 ml Output Urine Total 1200 ml # Voids 1 2 # Bowel Movements 0 Result Diagram: 12/09/16 0505 12/09/16 0505 Imaging Last Impressions Chest Ultrasound 12/09/16 0000 Signed Impressions: Service Date/Time: November 08:47 - CONCLUSION: The effusions have decreased considerably from the prior CTA. There is insufficient volume for safe thoracentesis. Paco yVas Jr., MD Objective Remarks GENERAL: This is a well-nourished, well-developed patient, in no apparent distress. CARDIOVASCULAR: Normal rate and regular rhythm without murmurs, gallops, or rubs. RESPIRATORY: Good respiratory efforts. Diminished breath sounds at the bases bilaterally. Otherwise clear to auscultation. GASTROINTESTINAL: Abdomen soft, non-tender, non-distended. Normal active bowel sounds MUSCULOSKELETAL: Extremities without cyanosis, or edema. NEURO: Alert & Oriented x4 to person, place, time, situation. Moves all ext x4 PSYCH: Appropriate mood and affect. Procedures None A/P Problem List: (1) Lung mass ICD Code: R91.8 Status: Acute (2) Elevated troponin ICD Code: R74.8 Status: Acute (3) Dyspnea on exertion ICD Code: R06.09 Status: Acute (4) Nonischemic cardiomyopathy ICD Code: I42.8 Status: Acute Assessment and Plan 71-year-old female with: Non-ischemic cardiomyopathy: Patient is status post heart catheterization which revealed nonocclusive coronary artery disease. Per cardiology, Cardiomyopathy likely secondary to chemotherapy versus viral. LVEF 20% by heart cardiac catheterization. Continue Coreg, contrast, Aldactone, aspirin, Lasix Strict I&O, Daily weight Symptoms improving. Lung mass: Concerning for malignancy. Patient has history of T-cell lymphoma. Pulmonology following, plan for workup inpatient vs outpatient. History of fungal pneumonia: Continue Voriconazole and Acyclovir. Hyperlipidemia: Continue statin. DVT prophylaxis: Heparin, LONA hose. Discharge Planning Plan for DC in 1-2 days if remain stable. Further input from Pulmonology appreciated. Azra Medina MD Dec 10, 2016 13:38
[2016-12-10] MEDS: HEPARIN SODIUM - SQ 10,000 UNITS/ML VIAL SQ SCH (13:52)
[2016-12-10] MEDS: ATORVASTATIN 40 MG TAB PO SCH (20:08)
[2016-12-11] VITALS (12 sets, daily range): BP systolic 101–132; BP diastolic 52–85; PULSE 85–98; RESP 16–18; TEMP 98.2–98.4; O2SAT 94–98
[2016-12-11] MEDS: VORICONAZOLE 200 MG TAB PO SCH (01:54)
[2016-12-11] MEDS: HEPARIN SODIUM - SQ 10,000 UNITS/ML VIAL SQ SCH (01:54)
[2016-12-11] MEDS: SACUBITRIL/VALSARTAN 24 MG-26 MG TAB PO SCH (08:33)
[2016-12-11] MEDS: CARVEDILOL 3.125 MG TAB PO SCH (08:33)
[2016-12-11] MEDS: ACYCLOVIR 200 MG CAP PO SCH (08:33)
[2016-12-11] MEDS: PANTOPRAZOLE SOD 20 MG DELAYED RELEASE TAB PO SCH (08:34)
[2016-12-11] MEDS: SPIRONOLACTONE 25 MG TAB PO SCH (08:34)
[2016-12-11] MEDS: ASPIRIN EC 81 MG TABEC PO SCH (08:34)
[2016-12-11] MEDS: SODIUM CHLORIDE 0.9% FLUSH 10 ML FLUSH IV FLUSH SCH (08:35)
[2016-12-11] MEDS ORDERED: CARV3.125 PO (08:59)
[2016-12-11] MEDS ORDERED: SPIR25 PO (08:59)
[2016-12-11] MEDS ORDERED: ASPI-99 PO (08:59)
[2016-12-11] MEDS ORDERED: FURO20TA PO (08:59)
[2016-12-11] MEDS ORDERED: FUROSEMIDE 20 MG TAB PO SCH (09:00)
--- NOTE | 2016-12-11 09:00 | HHI.DCPOC ---
Discharge Care Plan Diagnosis: (1) Nonischemic cardiomyopathy (2) Lung mass (3) Elevated troponin (4) Dyspnea on exertion Goals to Promote Your Health * To prevent worsening of your condition and complications * To maintain your health at the optimal level Directions to Meet Your Goals Take your medications as prescribed Follow your dietary instruction Follow activity as directed Keep your appointments as scheduled Take your immunizations and boosters as scheduled If your symptoms worsen call your PCP, if no PCP go to Urgent Care Center or Emergency Room Smoking is Dangerous to Your Health. Avoid second hand smoke Call the 24-hour hour crisis hotline for domestic abuse at Azra Medina MD Dec 11, 2016 09:00
--- NOTE | 2016-12-11 09:01 | HHI.DS ---
Discharge Summary Admission Date Dec 08, 2016 at 01:05 Discharge Date: Dec 11, 2016 Admitting Diagnosis Dyspnea; lung mass (1) Lung mass ICD Code: R91.8 (2) Elevated troponin ICD Code: R74.8 (3) Dyspnea on exertion ICD Code: R06.09 (4) Nonischemic cardiomyopathy ICD Code: I42.8 Procedures None Brief History - From Admission History of present illness from the admitting physician The patient is a 70-year-old female who presented to the emergency department with complaint of worsening shortness of breath over the past 2 days. She denies chest pain. States that the shortness of breath is significantly worse with any exertion. She was not able to walk around her van without getting short of breath yesterday. She states that she was at work and decided to drive herself to the ER because she was so short of breath. 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 She denies cardiac history, although does have family history of heart disease. Her mother had myocardial infarction at age 64. She states that she is feeling a little better this morning, but has not really been up ambulating much. CBC/BMP: 12/09/16 0505 12/09/16 0505 Significant Findings Laboratory Tests Test 12/09/16 05:05 Red Blood Count 3.53 MIL/MM3 (4.00-5.30) Hemoglobin 10.8 GM/DL (11.6-15.3) Hematocrit 32.7 % (35.0-46.0) Platelet Count 149 TH/MM3 (150-450) Neutrophils (%) (Auto) 74.3 % (16.0-70.0) Lymphocytes # (Auto) 0.9 TH/MM3 (1.0-4.8) Chloride Level 110 MEQ/L (98-107) Estimat Glomerular Filtration 58 ML/MIN (>89) Rate Random Glucose 130 MG/DL (74-106) Calcium Level 8.4 MG/DL (8.5-10.1) Imaging Last Impressions Chest Ultrasound 12/09/16 0000 Signed Impressions: Service Date/Time: ThDecember 09, 2016 08:47 - CONCLUSION: The effusions have decreased considerably from the prior CTA. There is insufficient volume for safe thoracentesis. Paco Vyas Jr., MD PE at Discharge GENERAL: This is a well-nourished, well-developed patient, in no apparent distress. CARDIOVASCULAR: Normal rate and regular rhythm without murmurs, gallops, or rubs. RESPIRATORY: Good respiratory efforts. Diminished breath sounds at the bases bilaterally. Otherwise clear to auscultation. GASTROINTESTINAL: Abdomen soft, non-tender, non-distended. Normal active bowel sounds MUSCULOSKELETAL: Extremities without cyanosis, or edema. NEURO: Alert & Oriented x4 to person, place, time, situation. Moves all ext x4 PSYCH: Appropriate mood and affect. Pt update on day of discharge Patient reports she is feeling well. She is ambulating on room air. Denies shortness of breath or chest pain. Per her discussion with Dr. Diallo, she will follow-up outpatient regarding the lung mass. 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 Per cardiology, Cardiomyopathy likely secondary to chemotherapy versus viral. LVEF 20% by heart cardiac catheterization. Continue Coreg, contrast, Entresto, Aldactone, aspirin, Lasix Strict I&O, Daily weight Symptoms resolved. Patient advised to follow-up with PCP and cardiology. Lung mass: Concerning for malignancy. Patient has history of T-cell lymphoma. Pulmonology followed the patient. She is stable from a respiratory standpoint. She will follow-up outpatient with pulmonology for workup of the lung mass. History of fungal pneumonia: Continue Voriconazole and Acyclovir. Patient advised to follow-up with her infectious disease doctor as scheduled. Hyperlipidemia: Continue statin. Pt Condition on Discharge: Good Discharge Disposition: Discharge Home Discharge Time: > 30 minutes Discharge Instructions DIET: Follow Instructions for: Heart Healthy Diet Activities you can perform: Regular-No Restrictions Follow up Referrals: Cardiology - 2 Weeks PCP Follow-up - 1 Week Pulmonology - 2 Weeks with Yoel Diallo MD New Medications: Aspirin (Adult Aspirin EC Low Strength) 81 Mg Tabec 81 MG PO DAILY #30 TAB Carvedilol (Coreg) 3.125 Mg Tab 3.125 MG PO Q12HR #60 TAB Furosemide (Furosemide) 20 Mg Tab 20 MG PO DAILY #30 TAB Sacubitril-Valsartan (Entresto) 24-26 Mg Tab 1 TAB PO BID #60 TAB Spironolactone (Aldactone) 25 Mg Tab 25 MG PO DAILY #30 TAB Continued Medications: Acyclovir (Acyclovir) 200 Mg Cap 200 MG PO BID Mgmt Viral Infection Ref 0 CAP Atorvastatin (Atorvastatin) 20 Mg Tab 40 MG PO HS Cholesterol Management #30 Ref 0 TAB Omeprazole (Omeprazole) 20 Mg Tab 20 MG PO BID #30 Ref 0 TAB Voriconazole (Vfend) 200 Mg Tab 200 MG PO Q12H Fungal Infection Ref 0 TAB Discontinued Medications: Metoprolol Tartrate (Metoprolol Tartrate) 25 Mg Tab 25 MG PO BID #60 Ref 0 TAB Azra Medina MD Dec 11, 2016 09:01
[2016-12-11] MEDS ORDERED: SACU1TAB PO (09:13)
== END 2016-12-11 11:24 | disposition home or self-care (01) | DRG 286 ==
LOC: PHEDDLT 00:57 → PH3A 01:05 → HCIS 12-09 18:05
PROVIDERS: ADMIT Family Medicine; ATTEND Family Medicine
PROC: 4A023N7 Measurement of Cardiac Sampling and Pressure, Left Heart, Percutaneous Approach (ICD-10-PCS; principal; 2016-12-08)
PROC: B2151ZZ Fluoroscopy of Left Heart using Low Osmolar Contrast (ICD-10-PCS; 2016-12-08)
PROC: B2111ZZ Fluoroscopy of Multiple Coronary Arteries using Low Osmolar Contrast (ICD-10-PCS; 2016-12-08)
DX: I11.0 Hypertensive heart disease with heart failure (principal); J16.8 Pneumonia due to other specified infectious organisms; I42.8 Other cardiomyopathies; Z94.81 Bone marrow transplant status; I50.21 Acute systolic (congestive) heart failure; E78.5 Hyperlipidemia, unspecified; R91.8 Other nonspecific abnormal finding of lung field; I25.10 Atherosclerotic heart disease of native coronary artery without angina pectoris; E11.9 Type 2 diabetes mellitus without complications; Z85.72 Personal history of non-Hodgkin lymphomas; Z87.891 Personal history of nicotine dependence; Z92.21 Personal history of antineoplastic chemotherapy; K21.9 Gastro-esophageal reflux disease without esophagitis; Z82.49 Family history of ischemic heart disease and other diseases of the circulatory system
CPT/HCPCS: 36600; 71010; 71275; 76604; 80048; 80053; 82550; 82805; 84484; 85025; 85379; 85610; 85730; 87015; 93005; 93306; 93458; C1769; C1893; J1644; J2250; J3010; Q9967